=== PATIENT | female | born 1995 | race Caucasian/White ===

== ENCOUNTER 2018-10-12 23:56 | Emergency (ER) | payer OTHER ==
[~2018-10-12] VITALS: Ht 167.6 cm; Wt 70.3 kg
[2018-10-13] MEDS ORDERED: ZANTAC150 MG PO (06:51)
[2018-10-13] MEDS ORDERED: ZOFRAN4 MG PO (06:51)
== END 2018-10-13 08:57 | disposition home or self-care (01) ==
LOC: ER 23:56
DX: K29.60 Other gastritis without bleeding (principal); R30.0 Dysuria; Z33.1 Pregnant state, incidental